=== PATIENT | male | born 1975 | race American Indian/Alaskan Native ===

== ENCOUNTER 2021-01-09 05:39 | Emergency (ER) | payer SELFPAY ==
[2021-01-09] MEDS ORDERED: ASPIRIN 325 MG TAB PO ONE (06:00)
[2021-01-09 06:02] VITALS: BP 207/129
--- NOTE | 2021-01-09 06:56 | Emergency Department Report ---
ED Chest Pain HPI - General Chief Complaint: Chest Pain Stated Complaint: BLOOD PRESSURE Time Seen by Provider: 01/09/21 06:46 Source: patient Mode of arrival: Ambulatory Limitations: No Limitations - History of Present Illness Initial Comments: 45-year-old male, history of hypertension, noncompliant with BP meds x1 year, presents to ED with complaint of chest pain. He reports onset of pain last night while at rest. States pain was dull in nature, located in the left chest, nonradiating. Patient reports some mild associated shortness of breath. He reports tobacco use. Denies drug use. MD Complaint: chest pain -: Last night Onset: during rest Pain Location: left chest Pain Radiation: none Severity: mild Quality: dull Consistency: now resolved Improves With: nothing Worsens With: nothing re: dyspnea. denies: nausea, vomting, diaphoresis Other Symptoms: denies: cough, fever, leg swelling Treatments Prior to Arrival: none - Related Data Allergies Allergy/AdvReac Type Severity Reaction Status Date / Time No Known Allergies Allergy Verified 01/09/21 06:50 Heart Score - HEART Score History: Slightly suspicious EKG: Non-specific Age: < 45 Risk factors: 1-2 risk factors Troponin: < normal limit HEART Score: 2 - EKG Read Time Time EKG Completed: 06:02 EKG Read Time: 06:05 ED Review of Systems ROS: Stated complaint: BLOOD PRESSURE Other details as noted in HPI Comment: All other systems reviewed and negative Constitutional: denies: chills, fever Respiratory: shortness of breath Cardiovascular: chest pain Gastrointestinal: denies: nausea, vomiting ED Past Medical Hx - Past Medical History Previous Medical History?: Yes Hx Hypertension: Yes - Surgical History Past Surgical History?: Yes Additional Surgical History: R knee sx, 1992 - Social History Smoking Status: Current Every Day Smoker Substance Use Type: None ED Physical Exam - General Limitations: No Limitations General appearance: alert, in no apparent distress - Head Head exam: Present: atraumatic, normocephalic - Eye Eye exam: Present: normal appearance, EOMI - ENT ENT exam: Present: mucous membranes moist - Neck Neck exam: Present: normal inspection - Respiratory Respiratory exam: Present: normal lung sounds bilaterally. Absent: respiratory distress - Cardiovascular Cardiovascular Exam: Present: regular rate, normal rhythm - GI/Abdominal GI/Abdominal exam: Present: soft. Absent: distended, tenderness - Extremities Exam Extremities exam: Present: normal inspection. Absent: pedal edema, calf tenderness - Neurological Exam Neurological exam: Present: alert, oriented X3, CN II-XII intact. Absent: motor sensory deficit - Psychiatric Psychiatric exam: Present: normal affect, normal mood - Skin Skin exam: Present: warm, dry, intact, normal color ED Course Vital Signs 01/09/21 06:01 Temperature 98.8 F Pulse Rate 84 Respiratory 18 Rate Blood Pressure 207/129 O2 Sat by Pulse 99 Oximetry - Reevaluation(s) Reevaluation #1: 01/09/21 06:58 Patient refusing any blood work. Patient has decided to leave AGAINST MEDICAL ADVICE. He has normal mental status and full decisional capacity. Patient understands his condition chest pain and elevated blood pressure and the risks of leaving AMA, including but not limited to heart attack, permanent disability and . He has had an opportunity ask questions about his medical condition. The patient has been informed that he may return for care anytime he has been given outpatient resources for follow-up. ED Medical Decision Making - EKG Data -: EKG Interpreted by Tx EKG shows normal: sinus rhythm, axis, intervals, QRS complexes, ST-T waves Rate: normal - EKG Data Interpretation: LV[facility] - Radiology Data Radiology results: report reviewed, image reviewed - Medical Decision Making 45-year-old male presents to ED with chest pain since last night. Chest pain currently resolved. Blood pressure elevated. Reports noncompliance with BP meds x1 year. Chest x-ray is unremarkable. EKG shows no acute ST changes reciprocal findings. Patient refusing any blood work. Patient signed out AMA. - Differential Diagnosis ACS, hypertensive emergency, drug abuse Critical care attestation.: If time is entered above; I have spent that time in minutes in the direct care of this critically ill patient, excluding procedure time. ED Disposition Clinical Impression: Chest pain Disposition: DC-07 LEFT AGAINST MED ADVICE Is pt being admited?: No Condition: Stable Instructions: Nonspecific Chest Pain, Adult Referrals: [facility] [place] [Provider Group] - 3-5 Days Forms: AMA Form
--- NOTE | 2021-01-09 07:31 | XRay Report ---
CHEST 2 VIEWS INDICATION / CLINICAL INFORMATION: CP W/SOB. COMPARISON: None available. FINDINGS: SUPPORT DEVICES: None. HEART / MEDIASTINUM: Tortuosity of the thoracic aorta LUNGS / PLEURA: No significant pulmonary or pleural abnormality. No pneumothorax. ADDITIONAL FINDINGS: No significant additional findings. IMPRESSION: 1. No acute findings. Signer Name: Jef Mariano MD Signed: 01/09/2021 7:26 AM Workstation Name: [id number]
--- NOTE | 2021-01-14 09:38 | Electrocardiograph Report ---
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
== END 2021-01-09 07:19 | disposition left against medical advice (07) ==
LOC: ED 05:39
DX: R07.89 Other chest pain (principal); I10 Essential (primary) hypertension; F17.200 Nicotine dependence, unspecified, uncomplicated; Z98.890 Other specified postprocedural states; Z79.899 Other long term (current) drug therapy
CPT/HCPCS: 71046; 93005; 99283